=== PATIENT | female | born 1985 ===

== ENCOUNTER 2018-05-29 19:02 | Emergency (ER) | payer SELFPAY ==
[2018-05-29 20:01] LABS: HCG,QUALITATIVE URINE NEGATIVE (NEGATIVE)
[2018-05-29 20:03] LABS: SQUAMOUS EPITHIAL 6 /hpf (0-5); URINE BACTERIA RARE (<OCC); URINE BILIRUBIN NEGATIVE (NEGATIVE); URINE BLOOD 1+ (NEGATIVE); URINE CLARITY Hazy (Clear); URINE COLOR Straw (YELLOW); URINE GLUCOSE (UA) NORMAL (Normal); URINE LEUKOCYTE ESTERASE 1+ Leu/uL (Negative); URINE PROTEIN NEGATIVE (NEGATIVE); URINE UROBILINOGEN NORMAL mg/dL (0.2-1.0)
[2018-05-29 20:07] LABS: BASO % 0.3 % (0.0-2.0); EOS # 0.2 K/uL (0.0-0.7); EOS % 1.8 % (0.0-4.0); HEMOGLOBIN 13.7 g/dL (11.0-16.0); LYMPH # 5.3 K/uL (1.0-4.3); LYMPH % 41.6 % (20.0-40.0); MEAN CELL VOLUME 88.7 fL (81.0-99.0); MEAN CORPUSCULAR HEMOGLOBIN 30.3 pg (27.0-31.0); MEAN CORPUSCULAR HGB CONC 34.1 g/dL (33.0-37.0); MEAN PLATELET VOLUME 9.6 fL (7.2-11.7); MONO # 1.3 K/uL (0.0-0.8); MONO % 10.1 % (0.0-10.0); NEUT # 5.9 K/uL (1.8-7.0); NEUT % 46.2 % (50.0-75.0); NRBC % 0.2 % (0.0-2.0); RBC 4.52 Mil/uL (3.80-5.20); RED CELL DISTRIBUTION WIDTH 13.3 % (11.5-14.5); WHITE BLOOD COUNT 12.7 K/uL (4.8-10.8)
[2018-05-29 20:21] LABS: ALB/GLOB RATIO 1.2 (1.0-2.1); ALBUMIN 4.5 g/dL (3.5-5.0); ALT/SGPT 27 U/L (9-52); AST/SGOT 20 U/L (14-36); BLOOD UREA NITROGEN 14 mg/dL (7-17); CALCIUM 9.5 mg/dl (8.6-10.4); GFR AFRICAN-AMERICAN > 60; GFR NON-AFRICAN AMERICAN > 60
[2018-05-29] MEDS ORDERED: Sodium Chloride 0.9% 1,000 ML IV STA (20:42)
[2018-05-29] MEDS ORDERED: Lidocaine 5% Patch TD STA (20:42)
--- NOTE | 2018-05-29 20:42 | C.PDOC ---
History Of Present Illness 32 y/o female presents to the ER complaining of lower back and hip pain since yesterday. 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 The patient admits to pain with movement. She denies any radiating pain, numbness or tingling. Time Seen by Provider: 05/29/18 19:59 Chief Complaint (Nursing): Headache History Per: Patient Onset/Duration Of Symptoms: Days Current Symptoms Are (Timing): Still Present Recent travel outside of the [place]: No Past Medical History Reviewed: Historical Data, Nursing Documentation, Vital Signs Vital Signs: Last Vital Signs Temp 98.5 F 05/29/18 19:17 Pulse 65 05/29/18 19:17 Resp 20 05/29/18 19:17 BP 132/84 05/29/18 19:17 Pulse Ox 99 05/29/18 20:57 Surgical History: Family History: States: Unknown Family Hx - Social History Hx Alcohol Use: No Hx Substance Use: No - Immunization History Hx Tetanus Toxoid Vaccination: No Hx Influenza Vaccination: No Hx Pneumococcal Vaccination: No Review Of Systems Except As Marked, All Systems Reviewed And Found Negative. Musculoskeletal: Positive for: Back Pain (Lower back pain ), Other (Hip pain) Neurological: Negative for: Weakness, Numbness, Other (photophobia ) Physical Exam - Physical Exam Appears: Well, Non-toxic, No Acute Distress Skin: Normal Color, Warm, Dry Head: Atraumatic, Normacephalic Eye(s): bilateral: PERRL, EOMI Oral Mucosa: Moist Neck: Normal ROM, Supple Chest: Symmetrical Cardiovascular: Rhythm Regular, No Murmur Respiratory: Normal Breath Sounds, No Rales, No Rhonchi, No Wheezing, Other ( NARD) Gastrointestinal/Abdominal: Bowel Sounds, Soft, No Tenderness Back: Muscle Spasm (Lower back) Extremity: Bilateral: Atraumatic, Normal Color And Temperature, Normal ROM Pulses: Left Radial: Normal, Right Radial: Normal Neurological/Psych: Oriented x3, Normal Speech, No Other (No photophobia, contrary to triage) Gait: Steady ED Course And Treatment - Laboratory Results Result Diagrams: 05/29/18 20:01 05/29/18 20:01 O2 Sat by Pulse Oximetry: 99 (RA) Pulse Ox Interpretation: Normal Medical Decision Making Medical Decision Making: Impression: 32 y/o female with lower back and hip pain that worsens with movement Plan: --CMP --CBC --Flexeril 10 mg PO --Lidoderm 2 ea --Reglan 10 mg IV --Toradol 30 mg IV --Tylenol 975 mg PO --IV Fluids --HCG --UA Disposition Counseled Patient/Family Regarding: Diagnosis, Need For Followup, Rx Given - Disposition Referrals: [facility] [Outside] [facility] [Outside] Disposition: HOME/ ROUTINE Condition: IMPROVED Prescriptions: Acetaminophen [Tylenol Extra Strength] 2 tab PO Q6 #30 tablet Cyclobenzaprine [Flexeril] 10 mg PO TID #15 tab Ibuprofen [Motrin] 600 mg PO Q6 #30 tab Lidocaine 5% [Lidoderm] 2 patch TOP ONCE PRN #20 patch MDD 3 PATCHES PRN Reason: Pain, Moderate (4-7) Metoclopramide [Reglan] 1 tab PO TID PRN #25 tab PRN Reason: Nausea/Vomiting Instructions: Migraine Headache (DC), Low Back Pain (DC) Forms: [employer] (Yakut), Work Excuse Print Language: CROATIAN - Clinical Impression Clinical Impression: Migraine, Back strain - 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 - Scribe Statement The provider has reviewed the documentation as recorded by the Scribe (Sharda Hunt) Provider Attestation: All medical record entries made by the Scribe were at my direction and personally dictated by me. I have reviewed the chart and agree that the record accurately reflects my personal performance of the history, physical exam, medical decision making, and the department course for this patient. I have also personally directed, reviewed, and agree with the discharge instructions and disposition.
--- NOTE | 2018-05-29 20:44 | C.PDOC ---
Time Seen by Provider: 05/29/18 19:59 Chief Complaint (Nursing): Headache Past Medical History Vital Signs: Last Vital Signs Temp 98.5 F 05/29/18 19:17 Pulse 65 05/29/18 19:17 Resp 20 05/29/18 19:17 BP 132/84 05/29/18 19:17 Pulse Ox 99 05/29/18 19:17 - Social History Hx Alcohol Use: No Hx Substance Use: No - Immunization History Hx Tetanus Toxoid Vaccination: No Hx Influenza Vaccination: No Hx Pneumococcal Vaccination: No ED Course And Treatment - Laboratory Results Result Diagrams: 05/29/18 20:01 05/29/18 20:01 O2 Sat by Pulse Oximetry: 99 Disposition - Disposition
[2018-05-29] MEDS ORDERED: Lidocaine 5% Patch TD ONE (20:50)
[2018-05-29] MEDS ORDERED: Sodium Chloride 0.9% 1,000 ML ONE (20:51)
[2018-05-29 22:27] VITALS: BP 121/85; PULSE 89; RESP 16; TEMP 98.1; O2SAT 100
== END 2018-05-29 22:26 | disposition home or self-care (01) ==
LOC: C.ER 19:02
DX: S39.012A Strain of muscle, fascia and tendon of lower back, initial encounter (principal); X50.0XXA Overexertion from strenuous movement or load, initial encounter; G43.909 Migraine, unspecified, not intractable, without status migrainosus
CPT/HCPCS: 80053; 81001; 84703; 85025; 96374; 96375; 99284; J1885; J2765; J7030

== ENCOUNTER 2018-10-28 11:02 | Emergency (ER) | payer OTHER ==
[2018-10-28] MEDS ORDERED: Sodium Chloride 0.9% 500 ML IV ONE (12:16)
[2018-10-28] MEDS ORDERED: DiphenhydrAMINE 50 mg/ml Inj IVP STA (12:16)
[2018-10-28] MEDS ORDERED: DiphenhydrAMINE 50 mg/ml Inj ONE (12:34)
--- NOTE | 2018-10-28 12:59 | C.PDOC ---
History Of Present Illness 33 y/o female with a PMHx significant only for anemia, presents to the ED complaining of on and off pressure-like throbbing headache for 8 days. She tried taking OTC Tylenol with minimal relief, last dose was yesterday morning. Denies any nausea, vomiting, photophobia, visual changes, fever, chills, neck stiffness, chest pain, SOB, or weakness. No recent travel. No sick contacts. On palpation patient complains of some posterior shoulder pain, but denies any neck pain contrary to triage. She also denies any sore throat or URI symptoms. Time Seen by Provider: 10/28/18 11:57 Chief Complaint (Nursing): Headache History Per: Patient History/Exam Limitations: no limitations Onset/Duration Of Symptoms: Days Current Symptoms Are (Timing): Still Present Quality: Pressure Recent travel outside of the [place]: No Past Medical History Reviewed: Historical Data, Nursing Documentation, Vital Signs Vital Signs: Last Vital Signs Temp 99.1 F 10/28/18 11:48 Pulse 72 10/28/18 11:48 Resp 18 10/28/18 11:48 BP 125/84 10/28/18 11:48 Pulse Ox 97 10/28/18 11:48 - Medical History PMH: Anemia Surgical History: Family History: States: Unknown Family Hx - Social History Hx Alcohol Use: No Hx Substance Use: No - Immunization History Hx Tetanus Toxoid Vaccination: No Hx Influenza Vaccination: No Hx Pneumococcal Vaccination: No Review Of Systems Constitutional: Negative for: Fever, Chills, Weakness Eyes: Negative for: Vision Change, Redness, Other (icterus) ENT: Negative for: Mouth Swelling, Throat Pain Cardiovascular: Negative for: Chest Pain Respiratory: Negative for: Cough, Shortness of Breath Gastrointestinal: Negative for: Nausea, Vomiting, Diarrhea Genitourinary: Negative for: Dysuria, Hematuria Musculoskeletal: Positive for: Shoulder Pain (upper bilateral shoulder pain). Negative for: Neck Pain, Back Pain Skin: Negative for: Rash Neurological: Positive for: Headache. Negative for: Weakness, Numbness, Change in Speech, Dizziness Physical Exam - Physical Exam Appears: Non-toxic, No Acute Distress, Other (Appears uncomfortable) Skin: Normal Color, Warm, No Rash Head: Atraumatic, Normacephalic Eye(s): bilateral: Normal Inspection (no scleral icterus, no nystagmus), PERRL, EOMI, Other (No photophobia) Ear(s): Bilateral: Normal (no drainage) Nose: Normal Oral Mucosa: Moist Throat: Normal (no swelling or injection, airway patent), No Erythema Neck: Normal ROM, No Midline Cervical Tenderness, Supple, Other (No nuchal rigidity) Chest: Symmetrical Cardiovascular: Rhythm Regular, No Murmur Respiratory: Normal Breath Sounds, No Rales, No Rhonchi, No Wheezing Gastrointestinal/Abdominal: Soft, No Distention Back: No Vertebral Tenderness, Other (+ tenderness to bilateral trapezius) Extremity: Bilateral: Atraumatic, Normal ROM (x 4) Pulses: Left Radial: Normal, Right Radial: Normal Neurological/Psych: Oriented x3, Normal Speech, Normal Cognition, Normal Cranial Nerves, Normal Motor, Normal Sensation, Other (No focal deficits) ED Course And Treatment O2 Sat by Pulse Oximetry: 97 (RA) Pulse Ox Interpretation: Normal - CT Scan/US CT Head Other Rad Studies (CT/US): Read By Radiologist, Radiology Report Reviewed CT/US Interpretation: Accession No. : [id number]. Patient Name / ID : BRETT OLIVIA / [id number]. Exam Date : 10/28/2018 14:09:53 ( Approved ). Study Comment : Sex / Age : F / 33Y. Creator : Юлия Schneider MD. Dictator : Юлия Schneider MD. Fish Liver Sorter : Cow Buyer : Юлия Schneider MD. Approver2 : Report Date : 10/28/2018 14:45:18. My Comment : . Date of service: 10/28/2018. PROCEDURE: CT HEAD WITHOUT CONTRAST. HISTORY: headache. COMPARISON: None available. TECHNIQUE: Axial computed tomography images were obtained through the head/brain without intravenous contrast. Radiation dose: Total exam DLP = 986.03 mGy-cm. This CT exam was performed using one or more of the following dose reduction techniques: Automated exposure control, adjustment of the mA and/or kV according to patient size, and/or use of iterative reconstruction technique. FINDINGS: HEMORRHAGE: No intracranial hemorrhage. BRAIN: No mass effect or edema. No atrophy or chronic microvascular ischemic changes. VENTRICLES: No hydrocephalus. TABITHA VARIUM: Unremarkable. PARANASAL SINUSES: Unremarkable as visualized. No significant inflammatory changes. MASTOID AIR CELLS: Unremarkable as visualized. No inflammatory changes. OTHER FINDINGS: None. IMPRESSION: No acute intracranial pathology identified. Medical Decision Making Medical Decision Making: Impression: Headache Plan: - IV fluids - 25 mg IV Benadryl - 15 mg IV Toradol - 4 mg IV Zofran Progress/Updates: 13:08 On reevaluation, patient reports headache has not improved. Patient states she has never had a headache like this before. CT Head ordered without contrast to r/o intracranial abnormality. Low suspicion for meningitis. CT Head is negative, patient notified. 15:50 On reevaluation, patient still reports no improvement of headache. Patient witnessed conversing with friend and playing on phone, resting comfortably. Ordered 975 mg PO Tylenol, 10 mg PO Reglan, and 10 mg PO flexeril. Educated patient that next test to be offered is lumbar puncture to r/o meningitis. Patient declines LP at this time, will reassess after patient is medicated. 16:44 On reevaluation, patient notes headache has resolved. Patient is stable for discharge home, provided with RX for Fioricet. 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 - Scribe Statement The provider has reviewed the documentation as recorded by the Charlotteibcindy Warren All medical record entries made by the Scribe were at my direction and personally dictated by me. I have reviewed the chart and agree that the record accurately reflects my personal performance of the history, physical exam, medical decision making, and the department course for this patient. I have also personally directed, reviewed, and agree with the discharge instructions and disposition.
[2018-10-28 14:43] VITALS: PULSE 61; RESP 20
--- NOTE | 2018-10-28 14:49 | CT ---
Date of service: 10/28/2018 PROCEDURE: CT HEAD WITHOUT CONTRAST. HISTORY: headache COMPARISON: None available. TECHNIQUE: Axial computed tomography images were obtained through the head/brain without intravenous contrast. Radiation dose: Total exam DLP = 986.03 mGy-cm. This CT exam was performed using one or more of the following dose reduction techniques: Automated exposure control, adjustment of the mA and/or kV according to patient size, and/or use of iterative reconstruction technique. FINDINGS: HEMORRHAGE: No intracranial hemorrhage. BRAIN: No mass effect or edema. No atrophy or chronic microvascular ischemic changes. VENTRICLES: No hydrocephalus. CALVARIUM: Unremarkable. PARANASAL SINUSES: Unremarkable as visualized. No significant inflammatory changes. MASTOID AIR CELLS: Unremarkable as visualized. No inflammatory changes. OTHER FINDINGS: None. IMPRESSION: No acute intracranial pathology identified.
[2018-10-28 16:59] VITALS: BP 111/57; TEMP 98.2
[2018-10-31 00:36] VITALS: O2SAT 97
== END 2018-10-28 16:59 | disposition home or self-care (01) ==
LOC: C.ER 11:02
DX: R51 Headache (principal)
CPT/HCPCS: 70450; 96374; 96375; 99285; J1200; J1885; J2405; J2765; J7040